=== PATIENT | female | born 1955 | race Caucasian/White ===

== ENCOUNTER → 2020-02-15 | Outpatient (CLI) | payer OTHER ==
[~2020-02-15] MED LIST: AMPH20TA2 PO; DEXT10TA7 PO; FLUO10TA PO
== END | disposition home or self-care (01) ==
LOC: STAR 14:07
PROVIDERS: ATTEND Obstetrics & Gynecology Female Pelvic Medicine and Reconstructive Surgery
DX: Z01.818 Encounter for other preprocedural examination (principal); R10.2 Pelvic and perineal pain; N81.4 Uterovaginal prolapse, unspecified; N39.3 Stress incontinence (female) (male); R00.0 Tachycardia, unspecified; Z20.828 Contact with and (suspected) exposure to other viral communicable diseases
CPT/HCPCS: 87635; 93005

== ENCOUNTER 2020-02-20 12:15 | Day surgery (SDC) | payer OTHER ==
[~2020-02-20] VITALS: Ht 167.6 cm; Wt 62.7 kg
[~2020-02-20 12:15] MED LIST changes: +BUPIVACAINE/PF 0.25% ONE; +EPINEPHRINE 1 MG/ML, 1ML ONE; +NEOMY/POLYMYXIN B GU IRR. 1 ML ONE
[2020-02-20 12:45] VITALS: BP 144/99
[2020-02-20] MEDS ORDERED: CHLORHEXIDINE 15 ML UDC ONE (12:49)
[2020-02-20] MEDS ORDERED: CHLORHEXIDINE 15 ML UDC MM ONE (13:00)
[2020-02-20] MEDS ORDERED: LACTATED RINGERS 1,000 ML IV SCH (13:00)
[2020-02-20] MEDS ORDERED: ACETAMINOPHEN 500 MG TABLET ONE (13:44)
[2020-02-20] MEDS ORDERED: ACETAMINOPHEN 500 MG TABLET PO ONE (14:00)
[2020-02-20] MEDS ORDERED: BUPIVACAINE/PF 0.25% ONE (14:41)
[2020-02-20] MEDS ORDERED: FENTANYL PF 100 MCG/2ML ONE ×5 (15:20→18:16)
[2020-02-20] MEDS ORDERED: MIDAZOLAM 1 MG/ML, 2ML ONE (15:20)
[2020-02-20] MEDS ORDERED: hydrALAzine 20 MG/ML, 1ML IV PRN (15:30)
[2020-02-20] MEDS ORDERED: HALOPERIDOL 5 MG/ML IV PRN (15:30)
[2020-02-20] MEDS ORDERED: PROMETHAZINE 25 MG/ML, 1ML IVPush PRN (15:30)
[2020-02-20] MEDS ORDERED: OXYcodone 5 MG/5 ML ORAL.SOL UDC PO PRN (15:30)
[2020-02-20] MEDS ORDERED: LABETALOL 5MG/ML, 20ML IV PRN (15:30)
[2020-02-20] MEDS ORDERED: DIPHENHYDRAMINE 50 MG/ML, 1ML IVPush PRN (15:30)
[2020-02-20] MEDS ORDERED: MEPERIDINE/PF 25MG/0.5ML IVPush PRN (15:30)
[2020-02-20] MEDS ORDERED: ONDANSETRON 2MG/ML, 2ML ONE (16:07)
[2020-02-20] MEDS ORDERED: PROPOFOL 10 MG/ML, 20ML ONE (16:07)
[2020-02-20] MEDS ORDERED: KETOROLAC 30 MG/1 ML ONE (16:07)
[2020-02-20] MEDS ORDERED: SUCCINYLCHOLINE 20 MG/ML, 10ML ONE (16:07)
[2020-02-20] MEDS ORDERED: CEFAZOLIN 1,000 MG ONE (16:07)
[2020-02-20] MEDS ORDERED: DEXAMETHASONE 4 MG/ML, 1ML ONE (16:07)
[2020-02-20] MEDS ORDERED: GLYCOPYRROLATE 0.2MG/1ML, 5ML ONE (16:07)
[2020-02-20] MEDS ORDERED: ROCURONIUM 10MG/ML,5ML ONE (16:07)
[2020-02-20] MEDS ORDERED: NEOSTIGMINE 1 MG/ML, 10ML ONE (16:07)
[2020-02-20] MEDS ORDERED: OXYcodone 5 MG/5 ML ORAL.SOL UDC ONE (18:14)
[2020-02-20] MEDS: FENTANYL PF 100 MCG/2ML IV PRN ×3 (18:15→18:33)
[2020-02-20] MEDS ORDERED: HYDROmorphone 1 MG/ML, 1ML INJ ONE (18:17)
[2020-02-20] MEDS: HYDROmorphone 1 MG/ML, 1ML INJ IVPush PRN ×2 (18:26→18:42)
[2020-02-20] MEDS ORDERED: DIAZEPAM 5 MG/ML, 2ML ONE (18:49)
[2020-02-20] MEDS ORDERED: MEPERIDINE/PF 25MG/ML,1ML ONE (18:50)
== END 2020-02-20 21:05 | disposition home or self-care (01) ==
LOC: OUT 12:15
PROVIDERS: ATTEND Obstetrics & Gynecology Female Pelvic Medicine and Reconstructive Surgery
DX: N39.46 Mixed incontinence (principal); N72 Inflammatory disease of cervix uteri; N81.89 Other female genital prolapse; N81.3 Complete uterovaginal prolapse; N91.2 Amenorrhea, unspecified; F17.210 Nicotine dependence, cigarettes, uncomplicated; Z88.0 Allergy status to penicillin; Z98.890 Other specified postprocedural states; Z79.899 Other long term (current) drug therapy
CPT/HCPCS: 57265; 57282; 57288; 58552; 88305; C1771; J0171; J0330; J0690; J1100; J1170; J1885; J2175; J2250; J2405; J2704; J2710; J3010; J7120